=== PATIENT | female | born 1970 | race Caucasian/White ===

== ENCOUNTER → 2023-07-28 06:27 | Day surgery (SDC) | payer OTHER, SELFPAY | LOC: GI 06:27 | PROVIDERS: ATTENDING PHYSICIAN Internal Medicine Gastroenterology | DX: Z12.11 Encounter for screening for malignant neoplasm of colon (principal); Z80.0 Family history of malignant neoplasm of digestive organs; K62.89 Other specified diseases of anus and rectum; K63.5 Polyp of colon | CPT/HCPCS: 45385; 88305 ==